=== PATIENT | female | born 1995 | race Caucasian/White ===

== ENCOUNTER 2018-08-02 13:34 | Emergency (ER) | payer BC ==
--- NOTE | 2018-08-02 14:11 | Emergency Department Record ---
History of Present Illness - General Chief Complaint: Abdominal Pain Stated Complaint: ABDOMINAL PAIN,LUMP LT ARMPIT Time Seen by Provider: 08/02/18 13:58 Source: Patient Mode of Arrival: Ambulatory Limitations: No limitations - History of Present Illness Initial Comments: 22 yo female presents with two concerns. She has had left axilla discomfort and mild swelling for over 5 years. She has seen her doctor and her [employer]. She had an US at one point. The axilla is mostly asymptomatic but occasionally aches. No redness or drainage. No fevers. No other swollen glands. No changes over the years. She just wanted to get it checked out again. She has had over 5 years of left lower quadrant pain that comes and goes. No vomiting, diarrhea, fever, dysuria, vaginal bleeding. She has had some discharge. She has never discussed it with her doctors. Normal cycles. No STD or history. MD Complaint: Abdominal pain, Other -: Year(s) Location: LLQ Radiation: LLQ Migration to: LLQ Severity: Moderate Quality: Sharp, Stabbing Consistency: Intermittent Improves With: Nothing Worsens With: Nothing Associated Symptoms: Denies other symptoms - Related Data LMP Date: 07/27/18 Home Medications Medication Instructions Recorded Confirmed Last Taken Norethindrone AC-Eth Estradiol 1 each PO DAILY 08/02/18 08/02/18 08/02/18 [] Allergies Allergy/AdvReac Type Severity Reaction Status Date / Time Penicillins Allergy HIVES Verified 08/02/18 13:45 Travel Screening - Travel/Exposure Within Last 30 Days Have you traveled within the last 30 days?: No Past Medical History - SOCIAL HISTORY Smoking Status: Never smoker Alcohol Use: Occasional Drug Use: None - RESPIRATORY Hx Respiratory Disorders: No - CARDIOVASCULAR Hx Cardio Disorders: No - NEURO Hx Neuro Disorders: No - GI Hx GI Disorders: No - Hx Genitourinary Disorders: No - ENDOCRINE Hx Endocrine Disorders: No - MUSCULOSKELETAL Hx Musculoskeletal Disorders: No - PSYCH Hx Psych Problems: No - HEMATOLOGY/ONCOLOGY Hx Hematology/Oncology Disorders: No Family Medical History Any Significant Family History?: No Physical Exam - General General Appearance: Alert, Oriented x3, Cooperative, No acute distress Limitations: No limitations - Head Head exam: Atraumatic, Normal inspection - Eye Eye exam: Normal appearance. negative: Conjunctival injection - ENT ENT exam: Normal exam Ear exam: Normal external inspection Nasal Exam: Normal inspection Mouth exam: Normal external inspection - Neck Neck exam: Normal inspection - Respiratory Respiratory exam: Normal lung sounds bilaterally. negative: Respiratory distress - Cardiovascular Cardiovascular Exam: Regular rate, Normal rhythm, Normal heart sounds - GI/Abdominal GI/Abdominal exam: Soft, Normal bowel sounds. negative: Distended, Guarding, Rebound, Rigid, Tenderness - Rectal Rectal exam: Deferred - exam: Abnormal external exam, Vaginal discharge. negative: Adnexal mass (L) , Adnexal mass (R), Adnexal tenderness (L), Adnexal tenderness (R), Cervical discharge, cervical motion tenderness, Vaginal bleeding - Extremities Extremities exam: negative: Normal inspection Image of Full Body: 1 - mild soft fullness of the left axilla, no definite swollen lymph nodes, no redness, no signs of infection - Back Back exam: Denies: CVA tenderness (R), CVA tenderness (L) - Neurological Neurological exam: Alert, Oriented X3 - Psychiatric Psychiatric exam: Normal affect, Normal mood - Skin Skin exam: Dry, Intact, Normal color, Warm Course Vital Signs 08/02/18 13:41 Temperature 97.5 F L Pulse Rate 91 H Respiratory 18 Rate Blood Pressure 136/87 Pulse Ox 97 - Reevaluation(s) Reevaluation #1: 08/02/18 13:58 No significant changes on the vitals. 08/02/18 14:40 I was informed the US was not completed without my knowledge due to need in the OR of the US The patient was offered to wait until the US was again available to complete the study. She declined. The patient is not symptomatic and prefers to have the tests as an outpatient We discussed emergent reasons to return for the US. She was given referrals to family medicine and general surgery. I encourage her to see a family doctor and repeat the US of the axilla prior to seeing the surgeon for the chronic stable axilla symptoms 08/02/18 14:48 The UA was negative The UCG was negative The Wet prep was negative 08/02/18 15:46 Disposition Disposition: Discharge Clinical Impression: Pelvic pain Axillary mass Qualifiers: Laterality: left Qualified Code(s): R22.32 - Localized swelling, mass and lump , left upper limb Disposition: Home, Self-Care Condition: (1) Good Instructions: Pelvic Pain in Women (ED) Additional Instructions: Call Dr Higgins to follow up the left arm pit (axilla) pain and swelling Call your doctor to arrange a follow up axillary (armpit) ultrasound before the appointment with the surgeon Call your OBGYN to follow up the pelvic pain Return to the ED if the pelvic pain returns. Referrals: [facility] [Provider Group] Mark Higgins [DOCTOR OF OSTEOPATH] - YENI LUZ M.D. [MEDICAL DOCTOR] - Forms: Patient Portal Access Time of Disposition: 14:44 Quality - Quality Measures Quality Measures: N/A - Blood Pressure Screening Does Patient Have Any of the Following: No Blood Pressure Classification: Pre-Hypertensive BP Reading Systolic Measurement: 136 Diastolic Measurement: 87 Screening for High Blood Pressure: < Pre-Hypertensive BP, F/U Documented > [ [id number]] Pre-Hypertensive Follow-up Interventions: Referral to alternative/primary care provider.
[2018-08-02 14:37] LABS: URINE APPEARANCE CLEAR; URINE BILIRUBIN NEGATIVE (NEGATIVE); URINE BLOOD NEGATIVE (NEGATIVE); URINE COLOR YELLOW; URINE GLUCOSE (UA) NEGATIVE (NEGATIVE); URINE KETONE NEGATIVE (NEGATIVE); URINE LEUKOCYTE ESTERASE NEGATIVE (NEGATIVE); URINE NITRITE NEGATIVE (NEGATIVE); URINE PROTEIN NEGATIVE (NEGATIVE); URINE UROBILINOGEN 0.2 E.U./dL (0.20 - 1.00)
[2018-08-02 14:39] LABS: HCG,QUALITATIVE URINE NEGATIVE (NEGATIVE)
[2018-08-03 16:00] LABS: GC SPECIMEN TYPE Vaginal
== END 2018-08-02 15:37 | disposition home or self-care (01) ==
LOC: ER 13:34
DX: R10.2 Pelvic and perineal pain (principal); R10.32 Left lower quadrant pain; R22.32 Localized swelling, mass and lump, left upper limb
CPT/HCPCS: 99284 ×2; 81003; 81025; Q0111; 87210